=== PATIENT | male | born 1960 | race African-American/Black ===

== ENCOUNTER 2019-07-08 15:41 | Emergency (ER) | payer OTHER ==
[2019-07-08] MEDS ORDERED: Ketorolac Tromethamine 60 MG/2 ML VIAL ONE (15:54)
[2019-07-08] MEDS ORDERED: Cyclobenzaprine 10 MG TAB ONE (15:54)
--- NOTE | 2019-07-08 18:39 | RAD ---
LUMBAR SPINE THREE VIEWS: 07/08/2019 No fracture or disc space narrowing was seen. There is a transitional vertebra at the lumbosacral ju nction. There is slight anterolisthesis of L5 on the transitional vertebra, probably longstanding, and slight disc space narrowing at this level. No pars defects were seen. The SI joints are symm etrical. IMPRESSION: Congenital changes at the lumbosacral junction, but no acute traumatic findings. POS: HOME
== END 2019-07-08 16:43 | disposition home or self-care (01) ==
LOC: BURERS 15:41
DX: S39.012A Strain of muscle, fascia and tendon of lower back, initial encounter (principal); I10 Essential (primary) hypertension; F17.290 Nicotine dependence, other tobacco product, uncomplicated; Z79.899 Other long term (current) drug therapy; V49.9XXA Car occupant (driver) (passenger) injured in unspecified traffic accident, initial encounter
CPT/HCPCS: 72100; 96372; J1885